=== PATIENT | female | born 1995 ===

== ENCOUNTER 2017-02-06 13:20 | Observation (INO) | payer SELFPAY ==
[2017-02-06] MEDS ORDERED: Midazolam 2 MG/2 ML VIAL IM STA (13:59)
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
[2017-02-06 14:49] LABS: BASO # 0.03 K/mm3 (0.0-2.0); BASO % 0.2 % (0.0-3.0); EOS # 0.1 (0.0-0.7); EOS % 0.5 % (1.5-5.0); GRAN # 12.62 (1.4-6.5); GRAN % 81.6 % (50.0-68.0); LYMPH # 1.9 (1.2-3.4); LYMPH % 12.5 % (22.0-35.0); MEAN CELL VOLUME 87.5 fl (80.0-105.0); MEAN CORPUSCULAR HEMOGLOBIN 29.7 pg (25.0-35.0); MEAN PLATELET VOLUME 9.6 fl (7.0-11.0); MONO # 0.8 (0.1-0.6); MONO % 5.2 % (1.0-6.0); PLATELET COUNT 262 10^3/uL (120.0-450.0); RBC 4.71 10^6/uL (3.5-6.1); RED CELL DISTRIBUTION WIDTH 13.6 % (11.5-14.5); WHITE BLOOD COUNT 15.5 10^3/ul (4.5-11.0)
[2017-02-06 15:02] LABS: ALB/GLOB RATIO 1.4 (1.1-1.8); ALT/SGPT 22 U/L (7-56); AST/SGOT 40 U/L (15-39); BLOOD UREA NITROGEN 10 mg/dL (7-21); CALCIUM 9.5 mg/dL (8.4-10.5); GFR AFRICAN-AMERICAN > 60; GFR NON-AFRICAN AMERICAN > 60; LIPASE 127 U/L (23-300); SALICYLATE 3 mg/dL (2.0-20.0)
[2017-02-06 15:04] LABS: ACETAMINOPHEN < 10.0 ug/ml (10.0-20.0)
[2017-02-06 15:17] LABS: PH,URINE 8.5 (4.7-8.0); URINE BILIRUBIN NEGATIVE (NEGATIVE); URINE BLOOD LARGE (NEGATIVE); URINE GLUCOSE (UA) NEGATIVE (NEGATIVE); URINE LEUKOCYTE ESTERASE NEGATIVE Leu/uL (NEGATIVE); URINE NITRATE NEGATIVE (NEGATIVE); URINE PROTEIN TRACE mg/dL (<30 mg/dL); URINE UROBILINOGEN 0.2 E.U./dL (<1 E.U./dL)
[2017-02-06 15:18] LABS: URINE APPEARANCE CLEAR (CLEAR); URINE COLOR YELLOW (YELLOW)
[2017-02-06 15:18] LABS: TROPONIN I < 0.01 ng/mL
[2017-02-06 15:19] LABS: HCG,QUALITATIVE URINE NEGATIVE (NEGATIVE)
[2017-02-06 15:25] LABS: URINE EPITHELIAL CELLS 0 - 2 /hpf (0-5); URINE RBC 15 - 20 /hpf (0-2)
[2017-02-06 15:26] LABS: URINE BACTERIA TRACE (NEG)
[2017-02-06 15:35] LABS: BARBITURATES, UR NEGATIVE (NEGATIVE); BENZODIAZEPINES, UR NEGATIVE (NEGATIVE); OPIATES, UR NEGATIVE (NEGATIVE); PHENCYCLIDINE, UR NEGATIVE (NEGATIVE)
--- NOTE | 2017-02-06 15:50 | CT ---
PROCEDURE: CT HEAD WITHOUT CONTRAST. HISTORY: ams seizure activity COMPARISON: None available. TECHNIQUE: Axial computed tomography images were obtained through the head/brain without intravenous contrast. Radiation dose: Total exam DLP = 724 mGy-cm. This CT exam was performed using one or more of the following dose reduction techniques: Automated exposure control, adjustment of the mA and/or kV according to patient size, and/or use of iterative reconstruction technique. FINDINGS: HEMORRHAGE: No intracranial hemorrhage. BRAIN: The overall parenchymal density appears within normal limits above below the tentorium including throughout the midline brain anatomy. This includes the brainstem. No suspicious extra-axial fluid collection identified. VENTRICLES: Unremarkable. No hydrocephalus. CALVARIUM: Unremarkable. PARANASAL SINUSES: Unremarkable as visualized. No significant inflammatory changes. MASTOID AIR CELLS: Unremarkable as visualized. No inflammatory changes. OTHER FINDINGS: None. IMPRESSION: Nonacute unenhanced head CT as discussed above. If not already evaluated, consider follow-up brain MRI given clinical history of seizures and altered mental status.
[2017-02-06] MEDS ORDERED: Multivitamin (MVI) 10 ML, Thiamine 100 MG, Folic Acid 1 MG in Sodium Chloride 0.9% 1,00... IV ONE (16:45)
--- NOTE | 2017-02-06 18:43 | RAD ---
HISTORY: Altered mental status. Portable study 16:42. COMPARISON: No prior. FINDINGS: LUNGS: No active pulmonary disease. PLEURA: No significant pleural effusion identified, no pneumothorax apparent. CARDIOVASCULAR: Normal. OSSEOUS STRUCTURES: No significant abnormalities. VISUALIZED UPPER ABDOMEN: Normal. OTHER FINDINGS: None. IMPRESSION: No active disease.
[2017-02-06 19:33] LABS: MAGNESIUM 2.1 mg/dL (1.7-2.2)
[2017-02-06 21:13] VITALS: O2SAT 99
--- NOTE | 2017-02-06 21:28 | CP.PCM.HP ---
<NataliaDuncan - Last Filed: 02/06/17 21:19> History of Present Illness - History of Present Illness History of Present Illness: 22 F +PMHx of bipolar disorder, ADHD, and depression, c/o difficulty breathing and s/p seizures X 2. Pt's fiance is at bedside. Patient states that she has quit drinking for the past 20 days, but went out last night on a binge and consumed a lot of alcohol. She further states that she consumed cocaine. This was in celebration of her 22rd birthday, which she feels upset about now spending in the Emergency Room. Patient's fiance states that last night, after drinking, patient became unconscious and patient's fiance had to perform CPR to rejuvenate her. An hour after patient woke up this morning, she started convulsing, per fiance. Fiance describes it as an initial convulsion of patient 's body, which was then followed by whole body convulsions. It was at this point that Fiance called EMS. Patient's fiance further states that the encounter is the first time that patient has been back to her baseline mentation since last night. Patient denies n/v/d, cp/sob, tongue biting, loss of bowel/bladder, or any other complaints. PSHx: None PMHx: Bipolar, ADHD, Depression ALL: NKDA SocH: Occasional Cocaine and Marijuana; 1/2ppd tobacco; 10-15 shots of liquor daily, though she has quit for the past 20 days. FamHx: DM, CA Medications: Depo Control Present on Admission - Present on Admission Any Indicators Present on Admission: No Review of Systems - Hematologic/Lymphatic Additional comments: Constitutional: pt denies fever, chills, generalized weakness Head/Neck: Pt admits to headache; no c-spine pain, no neck stiffness ENT: pt denies dysphagia, otalgia, hearing deficit, rhinorrhea Eyes: pt denies sudden loss of vision, diplopia, blurred vision MSK: pt denies muscle stiffness, joint pain, extremity cramping Cardio: pt denies sob, heart murmur, cp Pulm: pt denies cough, hemoptysis, wheeze GI: pt denies loss of appetite, abdominal pain, constipation, melena, n/v/d : pt denies burning on urination, urinary frequency, hematuria, urinary urgency Neuro: pt denies paresis, paresthesia, dizziness, gomez, numbness, tingling Derm: pt denies skin changes, lesions, nail changes Endo: pt denies intolerance to heat/cold, diaphoresis, night sweats, polydipsia Psych: pt denies anxiety, depression, mood changes Past Patient History - Infectious Disease Hx of Infectious Diseases: None - Past Social History Smoking Status: Unknown If Ever Smoked - PSYCHIATRIC Hx Bipolar Disorder: Yes Hx Depression: Yes Hx Substance Use: Yes Meds Allergies/Adverse Reactions: Allergies Allergy/AdvReac Type Severity Reaction Status Date / Time No Known Allergies Allergy Verified 11/03/15 12:14 Physical Exam - Additional Findings Additional findings: Phys Exam: VS as below Constitutional: a&o x 4, nad Head and Neck: +mild TTP top of head; neck supple, no jvd, trachea midline, carotid midline, no cervical/head mass Eyes: jeanne, nonicteric sclera, eom intact ENT: auditory acuity grossly intact, throat not congested, no nasal deformity Cardio: rrr, no m/r/g, no carotid bruit, nml s1, s2 Pulm: no accessory muscle use, equal nml breath sounds bilaterally, ctab Abd: s/nt/nd, nbs x 4 q, no palpable masses Derm: no rashes, no ulcers, no lesions Extr: +abrasions on b/l knees and left elbow; no edema, no cyanosis, no calf tenderness, no lesions, no varicosities Neuro: cn II-XII grossly intact, ue and le 5/5 muscle strength bilaterally, no los ue, le bilaterally and core Results - Vital Signs Recent Vital Signs: Last Vital Signs Temp 98.1 F 02/06/17 13:39 Pulse 60 02/06/17 21:13 Resp 16 02/06/17 21:13 BP 117/78 02/06/17 21:13 Pulse Ox 99 02/06/17 21:13 - Labs Result Diagrams: 02/06/17 14:30 02/06/17 14:30 Labs: Laboratory Results - last 24 hr 02/06/17 16:45 Phosphorus 2.9 Magnesium 2.1 Assessment & Plan - Assessment and Plan (Free Text) Assessment: 22 F +PMHx depression/bipolar/ADHD c/o etoh withdrawal, s/p alleged seizures X 2 Plan: 1. Alcohol Withdrawal - CIWA - Seizure/Fall Precautions - Banana Bag - Ativan 1 q2 PRN - CMP/CBC for tomorrow - Folic acid, Thiamine, MV for tomorrow - Zofran - Tylenol for pain 2. Alcohol Abuse - Advised on perils of alcohol - Advised to drink responsibly 3. Polysubstance Abuse - Advised on perils of cocaine and marijuana use - Advised on cessation 4. Hx/o Bipolar d/o - No longer on medications - advised to continue o/p follow up 5. Hx/o Depression - Advised to follow up outpatient 6. DVT/GI PPHXs - unnecessary/protonix <Larry Ramosantha - Last Filed: 02/07/17 15:08> Results - Vital Signs Recent Vital Signs: Last Vital Signs Temp 97.7 F 02/06/17 23:02 Pulse 68 02/06/17 23:02 Resp 20 02/06/17 23:02 BP 113/55 L 02/06/17 23:02 Pulse Ox 99 02/06/17 21:13 - Labs Result Diagrams: 02/06/17 14:30 02/06/17 14:30 Labs: Laboratory Results - last 24 hr 02/06/17 16:45 Phosphorus 2.9 Magnesium 2.1 Attending/Attestation - Attestation I have personally seen and examined this patient.: Yes I have fully participated in the care of the patient.: Yes I have reviewed all pertinent clinical information: Yes Notes (Text): 02/07/17 15:03 attending note; Patient seen and examined with resident in ER. patient's partner by the bedside. Patient is a 22 female PMHx of bipolar disorder, ADHD, and depression, c/o difficulty breathing and s/p seizures X 2. Patient states that she has quit drinking for the past 20 days. currently admitted with an episode of seizure was due to drug and alcohol abuse. Urine drug screen is positive for cocaine and marijuana. patient with a long-standing history of drug abuse. Currently patient is alert, awake and oriented. Not in any withdrawal. Started onIV Ativan. Continue CIWA protocol. Alcohol cessation and drug abuse cessation is strongly advised. Patient is advised not to drive. Patient is visiting from [place]. Planning to go back within a day or two. The diagnosis, treatment plan discussed with patient and patient's partner in detail.
[2017-02-06 23:51] VITALS: BP 113/55; PULSE 68; RESP 20; TEMP 97.7
[2017-02-07] MEDS ORDERED: Multivitamin Therapeutic Tab PO SCH (10:00)
--- NOTE | 2017-02-07 23:57 | CARD ---
APPROVED REPORT EKG Measurement Heart [id number] VA [id number] [id number] <Conclusion> Normal sinus rhythm with sinus arrhythmia Normal ECG
== END 2017-02-07 00:11 | disposition left against medical advice (07) ==
LOC: ED 13:20 → MERGE 16:29 → ERH 16:29 → 2RSO 22:33
PROVIDERS: ADMIT Internal Medicine; ATTEND Internal Medicine
DX: R56.9 Unspecified convulsions (principal); F10.239 Alcohol dependence with withdrawal, unspecified; F14.10 Cocaine abuse, uncomplicated; F12.10 Cannabis abuse, uncomplicated; F90.9 Attention-deficit hyperactivity disorder, unspecified type; F31.9 Bipolar disorder, unspecified; Y90.3 Blood alcohol level of 60-79 mg/100 ml; Z87.891 Personal history of nicotine dependence
CPT/HCPCS: 70450; 71010; 80053; 81001; 82550; 83690; 83735; 84100; 84484; 84703; 85025; 93005; 96374; 99285; C9113; G0378; G0480; J3411; J7040